=== PATIENT | female | born 1995 | race Caucasian/White ===

== ENCOUNTER 2017-05-30 09:35 | Outpatient (CLI) | payer BC ==
--- NOTE | 2017-05-30 10:45 | MRI ---
MRI BRAIN WITHOUT CONTRAST: Technique: Multiplanar, multisequential imaging of brain obtained. History: New onset headaches. FINDINGS: Ventricles have normal size and position. No evidence of restricted diffusion. There is a single signal abnormality in the subcortical region of the right frontal lobe in the regio n of the anterior aspect of the external capsule near the anterior insular cortex. This measures appr oximately 5 mm. No other white matter signal abnormality is identified. Vascular structures show normal flow voids. Paranasal sinuses and mastoids appear clear. IMPRESSION: There is a single signal abnormality subcortical white matter in the right frontal lobe as described above. Recommend further evaluation with post contrast study to assess enhancement in this lesion. Code T POS: ANDREW
== END 2017-05-30 09:36 | disposition home or self-care (01) ==
LOC: SCSMRI 09:35
PROVIDERS: ATTEND Student in an Organized Health Care Education/Training Program
DX: R51 Headache (principal); R94.02 Abnormal brain scan
CPT/HCPCS: 70551

== ENCOUNTER 2017-06-12 13:34 | Outpatient (CLI) | payer BC ==
[~2017-06-12 13:34] MED LIST: Gadobenate Dimeglumine 529 MG/1 ML (20ML VIAL) ONE
--- NOTE | 2017-06-12 15:37 | MRI ---
MRI BRAIN WITH CONTRAST: History: Abnormal brain MRI. Unilateral headache. Comparison: Noncontrast brain MRI 05-30-17. Technique: Pre and post contrast brain MRI is performed in the axial plane. Multisequential, multipla linda MRI is performed. 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 No pathologic enhancement of the brain pa renchyma. There is nonspecific fullness of the palatine tonsils. Adequate aeration of the sinuses and mastoid air cells. Previously suggested T2 and FLAIR hyperintensity involving the right temporal region is present, but less evident on the current examination. Nevertheless, there is no associated abnormal enhancement in this region. IMPRESSION: 1. No abnormal enhancement associated with the previously identified T2 and FLAIR hyperintensity in t he right temporal region. Follow up imaging in six months is recommended to assess for stability. 2. Nonspecific palatine tonsil hyperplasia. Correlate clinically. Code T POS: ANDREW
== END 2017-06-12 13:35 | disposition home or self-care (01) ==
LOC: SCSMRI 13:34
PROVIDERS: ATTEND Student in an Organized Health Care Education/Training Program
DX: R51 Headache (principal); R93.0 Abnormal findings on diagnostic imaging of skull and head, not elsewhere classified; J35.1 Hypertrophy of tonsils
CPT/HCPCS: 70552; A9579